=== PATIENT | female | born 1970 | race Caucasian/White ===

== ENCOUNTER 2019-12-08 16:32 | Outpatient (CLI) | payer BC, SELFPAY ==
[2019-12-08 17:07] LABS: Blood Urea Nitrogen 12 mg/dL (7-17); Calcium 9.1 mg/dL (8.4-10.2); Carbon Dioxide 25 mmol/L (22-30); Chloride 103 mmol/L (98-107); Estimated Glomerular Filt Rate > 60; Glucose 89 mg/dL (65-105); Potassium 3.7 mmol/L (3.4-5.0); Sodium 139 mmol/L (137-145)
== END 2019-12-08 16:33 | disposition home or self-care (01) ==
LOC: ANHLAB 16:33
PROVIDERS: PCP Family Medicine; Visit Provider Nurse Practitioner Family
DX: E87.1 Hypo-osmolality and hyponatremia (principal)
CPT/HCPCS: 36415; 80048

== ENCOUNTER 2020-08-02 06:59 | Outpatient (NON) | payer BC, SELFPAY ==
[2020-08-02 21:25] LABS: SARS-CoV-2 RNA PCR Negative
== END 2020-08-02 07:00 ==
PROVIDERS: PCP Family Medicine; Visit Provider Nurse Practitioner Family
DX: Z20.828 Contact with and (suspected) exposure to other viral communicable diseases (principal); R68.89 Other general symptoms and signs
CPT/HCPCS: 87635; C9803; U0003

== ENCOUNTER 2021-07-27 15:19 | Outpatient (CLI) | payer BC, SELFPAY ==
[2021-07-27 15:40] LABS: Basophils Percent Auto 0.3 % (0.2-1.2); Eosinophils Absolute Auto 0.1 K/mm3 (0-0.3); Eosinophils Percent Auto 1.5 % (0-4.4); Hematocrit 40.8 % (37.0-47.0); Hemoglobin 13.8 g/dL (12.0-15.0); Immature Granulocyte Absolute 0.01 K/mm3 (0.00-0.031); Immature Granulocyte Percent A 0.2 % (0-0.5); Lymphocytes Absolute Auto 2.54 K/mm3 (0.9-3.2); Lymphocytes Percent Auto 41.4 % (18.3-44.2); Mean Corpuscular HGB Conc 33.8 g/dl (32-36); Mean Corpuscular Hemoglobin 29.9 pg (26-34); Mean Corpuscular Volume 88.3 fl (80-100); Mean Platelet Volume 10.4 fl (7.4-10.4); Monocytes Absolute Auto 0.5 K/mm3 (0.1-0.6); Monocytes Percent Auto 8.8 % (2.6-8.5); Neutrophils Absolute Auto 2.9 K/mm3 (1.3-6.7); Neutrophils Percent Auto 47.8 % (45.5-73.1); Platelet Count Result 270 k/mm3 (150-375); Red Blood Count 4.62 M/mm3 (4.2-5.4); Red Cell Distribution Width 12.5 % (11.5-14.5); White Blood Count 6.1 K/mm3 (4.5-10.0)
[2021-07-27 15:48] LABS: Alanine Aminotransferase 17 U/L (4-35); Albumin Level 4.8 g/dL (3.5-5.1); Alkaline Phosphatase 87 U/L (38-126); Anion Gap 7 mmol/L (8-16); Aspartate Amino Transferase 24 U/L (14-36); Bilirubin,Total 0.2 mg/dL (0.2-1.3); Blood Urea Nitrogen 10 mg/dL (7-17); Calcium 9.6 mg/dL (8.4-10.2); Carbon Dioxide 29 mmol/L (22-30); Chloride 104 mmol/L (98-107); Estimated Glomerular Filt Rate > 60; Glucose 94 mg/dL (65-110); Potassium 4.3 mmol/L (3.4-5.0); Sodium 140 mmol/L (137-145)
[2021-07-27 16:06] LABS: Vitamin D 25 Hydroxy 35.9 ng/mL
== END 2021-07-27 15:20 | disposition home or self-care (01) ==
LOC: ANHLAB 15:22
PROVIDERS: PCP Family Medicine; Visit Provider Nurse Practitioner Family
DX: R10.813 Right lower quadrant abdominal tenderness (principal); R00.2 Palpitations; R53.83 Other fatigue
CPT/HCPCS: 36415; 80053; 82306; 84443; 85025

== ENCOUNTER → 2021-08-10 04:30 | Outpatient (CLI) | payer BC, SELFPAY ==
[2021-08-11 17:41] LABS: SARS-CoV-2 RNA PCR Negative
== END ==
PROVIDERS: PCP Family Medicine; Visit Provider Family Medicine
DX: R68.89 Other general symptoms and signs (principal); Z20.822 Contact with and (suspected) exposure to COVID-19
CPT/HCPCS: C9803; U0003; U0005

== ENCOUNTER → 2022-03-03 01:56 | Outpatient (CLI) | payer BC, SELFPAY ==
[2022-03-03 16:02] LABS: SARS-CoV-2 RNA PCR Negative
== END ==
PROVIDERS: PCP Family Medicine; Visit Provider Nurse Practitioner Family
DX: R68.89 Other general symptoms and signs (principal); Z20.822 Contact with and (suspected) exposure to COVID-19
CPT/HCPCS: C9803; U0003; U0005

== ENCOUNTER 2023-01-29 08:44 | Outpatient (CLI) | payer BC, SELFPAY ==
[2023-01-29 10:09] LABS: Hematocrit 41.2 % (37.0-47.0); Hemoglobin 14.1 g/dL (12.0-15.0); Mean Corpuscular HGB Conc 34.2 g/dl (32-36); Mean Corpuscular Hemoglobin 29.7 pg (26-34); Mean Corpuscular Volume 86.9 fl (80-100); Mean Platelet Volume 10.3 fl (7.4-10.4); Platelet Count Result 305 k/mm3 (150-375); Red Blood Count 4.74 M/mm3 (4.2-5.4); Red Cell Distribution Width 12.6 % (11.5-14.5); White Blood Count 6.1 K/mm3 (4.5-10.0)
[2023-01-29 10:28] LABS: Alanine Aminotransferase 21 U/L (6-35); Albumin Level 4.7 g/dL (3.5-5.1); Alkaline Phosphatase 96 U/L (38-126); Anion Gap 7 mmol/L (8-16); Aspartate Amino Transferase 23 U/L (14-36); Bilirubin,Total 0.5 mg/dL (0.2-1.3); Blood Urea Nitrogen 15 mg/dL (7-17); Calcium 9.2 mg/dL (8.4-10.2); Carbon Dioxide 30 mmol/L (22-30); Chloride 102 mmol/L (98-107); Cholesterol 228 mg/dL (0-200); Estimated Glomerular Filt Rate > 60; Glucose 97 mg/dL (65-110); HDL Direct 51 mg/dL; Potassium 4.6 mmol/L (3.4-5.0); Sodium 139 mmol/L (137-145); Triglycerides 149 mg/dL (<150)
[2023-01-29 10:39] LABS: LDL Cholesterol Direct 136 mg/dL
[2023-01-29 11:18] LABS: Vitamin D 25 Hydroxy 52.2 ng/mL
--- NOTE | 2023-02-02 12:36 | WPDHOLTEREM ---
Holter/Event Monitor Holter/Event Monitor Date of procedure: 01/29/23 Holter/Event Procedure: 48 Hr Holter Monitor Indications: Palpitations Conclusion: 1. 48 hour holter monitor on 01/29/23. 2. Underlying rhythm is sinus rhythm. HR range 50-140 bpm; average HR 80 bpm. 3. There are 35 premature supraventricular complexes and 1 supraventricular couplet. No supraventricular tachycardia. 4. There are 2 premature ventricular complexes. No ventricular tachycardia. 5. No sinoatrial or atrioventricular blocks. No significant pauses greater than 2 seconds. 6. No symptoms available for correlation.
== END 2023-01-29 08:45 | disposition home or self-care (01) ==
LOC: ANHCARD 08:46
PROVIDERS: PCP Family Medicine; Visit Provider Nurse Practitioner Family
DX: R00.2 Palpitations (principal); Z87.898 Personal history of other specified conditions; Z13.220 Encounter for screening for lipoid disorders; Z13.29 Encounter for screening for other suspected endocrine disorder; E55.9 Vitamin D deficiency, unspecified; Z13.1 Encounter for screening for diabetes mellitus; Z68.26 Body mass index [BMI] 26.0-26.9, adult
CPT/HCPCS: 36415; 80053; 80061; 82306; 84443; 85027; 93225; 93226

== ENCOUNTER 2023-03-12 08:54 | Outpatient (CLI) | payer BC, SELFPAY ==
--- NOTE | 2023-03-12 08:58 | EST_ITS ---
Patient Info Name: Snow Álvarez Age: 53 years : 1970 Gender: Female Ht: 66 in Wt: 160 lbs BSA: 1.85 m2 HR: 74 bpm BP: 115 / 84 mmHg Heart Rhythm: Sinus Rhythm Exam Date: 03/12/2023 9:08 AM Exam Location: [facility] Stress Patient Status: Outpatient Admit Date: 03/12/2023 Staff Ordering Physician: Elliot Workman DO Attending Provider: Elliot Workman DO Exercise Technologist: Falguni Jackson CT Exercise Physician: Elliot Workman DO Exam Type: CA stress test treadmill Study Info Indications R07.89 - Other chest pain A treadmill exercise stress test was performed. Summary 1. 1. Negative Syed exercise stress test for ischemic ST changes by ECG criteria. 2. 2. Good functional capacity, achieving 10 METs of workload. 3. 3. Appropriate HR response to exercise. 4. 4. Appropriate HR recovery at 1 minute post exercise. 5. 5. No imaging with stress testing. 6. 6. Patient informed of the above results. Protocol: Syed Stress ECG Details Stage: REST Duration (min): 1 min : 13 sec Speed (mph): 0.0 Grade (%): 0 HR (bpm): 70 SBP (mmHg): 115 DBP (mmHg): 84 METS: --- Stage: REST Duration (min): 10 min : 55 sec Speed (mph): 0.0 Grade (%): 0 HR (bpm): 79 SBP (mmHg): 115 DBP (mmHg): 84 METS: --- Stage: STAGE 1 Duration (min): 1 min : 0 sec Speed (mph): 1.7 Grade (%): 10 HR (bpm): 96 SBP (mmHg): 115 DBP (mmHg): 84 METS: --- Stage: STAGE 1 Duration (min): 2 min : 0 sec Speed (mph): 1.7 Grade (%): 10 HR (bpm): 108 SBP (mmHg): 115 DBP (mmHg): 84 METS: --- Stage: STAGE 1 Duration (min): 3 min : 0 sec Speed (mph): 1.7 Grade (%): 10 HR (bpm): 111 SBP (mmHg): 131 DBP (mmHg): 64 METS: --- Stage: STAGE 2 Duration (min): 1 min : 0 sec Speed (mph): 2.5 Grade (%): 12 HR (bpm): 119 SBP (mmHg): 131 DBP (mmHg): 64 METS: --- Stage: STAGE 2 Duration (min): 2 min : 0 sec Speed (mph): 2.5 Grade (%): 12 HR (bpm): 135 SBP (mmHg): 169 DBP (mmHg): 73 METS: --- Stage: STAGE 2 Duration (min): 3 min : 0 sec Speed (mph): 2.5 Grade (%): 12 HR (bpm): 133 SBP (mmHg): 169 DBP (mmHg): 73 METS: --- Stage: STAGE 3 Duration (min): 1 min : 0 sec Speed (mph): 3.4 Grade (%): 14 HR (bpm): 146 SBP (mmHg): 208 DBP (mmHg): 87 METS: --- Stage: STAGE 1 Duration (min): 3 min : 0 sec Speed (mph): 1.7 Grade (%): 10 HR (bpm): 111 SBP (mmHg): 131 DBP (mmHg): 64 METS: --- Stage: STAGE 2 Duration (min): 3 min : 0 sec Speed (mph): 2.5 Grade (%): 12 HR (bpm): 133 SBP (mmHg): 169 DBP (mmHg): 73 METS: --- Stage: STAGE 3 Duration (min): 2 min : 0 sec Speed (mph): 3.4 Grade (%): 14 HR (bpm): 153 SBP (mmHg): 208 DBP (mmHg): 87 METS: --- Stage: RECOVERY Duration (min): 1 min : 0 sec Speed (mph): 0.0 Grade (%): 0 HR (bpm): 124 SBP (mmHg): 150 DBP (mmHg): 92 METS:
== END 2023-03-12 08:55 | disposition home or self-care (01) ==
LOC: ANHCARD 08:56
PROVIDERS: PCP Family Medicine; Visit Provider Internal Medicine Cardiovascular Disease
DX: R07.9 Chest pain, unspecified (principal)
CPT/HCPCS: 93017

== ENCOUNTER 2023-03-30 01:18 | Day surgery (SDC) | payer BC, SELFPAY ==
[2023-03-23 08:54] VITALS: BMI 25.9
[2023-03-30 09:00] VITALS: BP 105/60; PULSE 67; RESP 16; TEMP 36.3; O2SAT 98; BMI 26.6
[2023-03-30] MEDS: LACTATED RINGERS 1,000 ML 150 ML IV CONT (09:21)
--- NOTE | 2023-03-30 09:22 | WPDANESEPPF ---
Anes - Initial Pre Proc Eval Procedure: Operation Date: 03/30/23 10:00 Proposed Procedures p Esophagogastroduodenoscopy - Pj Hanson MD Date/Time: 03/30/23 09:22 Surgeon: Pj Hanson MD Pre Op Diagnosis: GERD Patient Data Age: 53 Gender: F Height: 1.68 m Weight: 75 kg Last Vital Signs Temp 36.3 C L 03/30/23 09:00 Pulse 67 03/30/23 09:00 Resp 16 03/30/23 09:00 BP 105/60 03/30/23 09:00 Pulse Ox 98 03/30/23 09:00 O2 Del Method Room Air 03/30/23 09:00 Allergies Allergy/AdvReac Type Severity Reaction Status Date / Time No Known Allergies Allergy Verified 03/30/23 09:05 Home Medications Medication Instructions Recorded Confirmed Type estradiol 2 mg tablet 2 mg PO DAILY #90 tabs 12/19/22 03/30/23 Rx Patient hx anesthesia problems: none Family hx anesthesia problems: none Results Review: All pre-operative results and documents have been reviewed as part of the pre-operative evaluation. [facility] Past Medical History Medical History Adult BMI 26.0-26.9 kg/sq m Basal cell carcinoma (~2009) face BMI 24.0-24.9, adult BMI 25.0-25.9,adult COVID-19 Dense breast tissue History of carcinoma in situ of vulva Screening mammogram, encounter for Urinary, incontinence, stress female Surgical History Surgical History History of biopsy 01/20/13 vulvar biopsy--severe dysplasia/CIS/ROCK 3 History of bladder suspension procedure (~2012) History of excision of lesion 02/14/13 wide vulvar excision left labia--ROCK 3 History of genitourinary surgery 05/07/13 bladder defect repair History of laparoscopy multiple laparoscopies for endometriosis & ovarian cysts History of left knee surgery History of lumpectomy of left breast 04/02/17 benign, microcalcifications identified History of ovarian cystectomy (03/30/04) lt ovarian cyst History of total abdominal hysterectomy (02/26/02) WERNER RSO--endometriosis, ovarian cyst Family History Family History Father Glaucoma Diabetes mellitus Basal cell carcinoma of skin Hypertension Mother Alzheimers disease Pacemaker Breast cancer Hypertension Heart disease Sibling Diabetes mellitus brother Malignant melanoma of skin brother Hypertension brother Grandparent Malignant melanoma of skin paternal grandmother Cerebrovascular accident paternal grandfather Other Carcinoma of colon Family history of arthritis Family history of lung cancer Family history of malignant neoplasm of ovary Social History Social History Smoking status: Never smoker Tobacco type: cigarettes Alcohol intake: never Substance use: never Substance use type: does not use Living arrangements: with family Additional living arrangements comments: Occupation/Education: occupation Additional occupation/education comments: School RN Gender identity (if verbalized by the patient): Female Sexual Orientation (if Verbalized by the Patient): Straight or Heterosexual Spiritual care concerns: No Anes - Eval Final PreProcedure Day of Procedure 03/30/23 09:22 Patient weight: overweight Heart: regular rate and rhythm Lungs: clear to auscultation and normal air movement Airway: Mallampati scale class II Neurological: alert and oriented Last oral intake: >/= 8 hours ASA classification: II Emergent: no Anesthetic plan: proceed Anesthesia type and monitoring: general GIVS Results Review: All pre-operative results and documents have been reviewed as part of the pre-operative evaluation. Informed Consent: The patient's anesthetic plan and its attendant risks and benefits were discussed with the patient/family/POA. Questions were solicited and answers provided t
--- NOTE | 2023-03-30 09:46 | PM.HPGS ---
History of Present Illness History of Present Illness Consent: Risks, benefits, and alternatives have been discussed and questions answered. Patient agrees to proceed with procedure. Chief complaint: Dysphagia Narrative: Snow Álvarez is a 53 year old female Referred for EGD. Patient states for several months has had difficulty with food passage. She states food will hang up and then drop into the remainder of the esophagus it will once again holdup in the mid chest. She states this happens with both liquids and solids. She denies any heartburn. She occasionally will regurgitate or bring the food she has eaten back up undigested. She states that this causes some discomfort when it happens. She has no specific heartburn. She has had no bleeding or weight loss. Patient was given a trial of pantoprazole over the last several weeks with no change in symptoms. Family history is significant for a sibling with GE reflux and esophageal stricture that was dilated. Patient presents today for EGD to evaluate more thoroughly. Review of Systems Review of Systems: Review of systems noncontributory. [facility] Past Medical History Medical History Adult BMI 26.0-26.9 kg/sq m Basal cell carcinoma (~2009) face BMI 24.0-24.9, adult BMI 25.0-25.9,adult COVID-19 Dense breast tissue History of carcinoma in situ of vulva Screening mammogram, encounter for Urinary, incontinence, stress female Surgical History Surgical History History of biopsy 01/20/13 vulvar biopsy--severe dysplasia/CIS/ROCK 3 History of bladder suspension procedure (~2012) History of excision of lesion 02/14/13 wide vulvar excision left labia--ROCK 3 History of genitourinary surgery 05/07/13 bladder defect repair History of laparoscopy multiple laparoscopies for endometriosis & ovarian cysts History of left knee surgery History of lumpectomy of left breast 04/02/17 benign, microcalcifications identified History of ovarian cystectomy (03/30/04) lt ovarian cyst History of total abdominal hysterectomy (02/26/02) WERNER RSO--endometriosis, ovarian cyst Family History Family History Father Glaucoma Diabetes mellitus Basal cell carcinoma of skin Hypertension Mother Alzheimers disease Pacemaker Breast cancer Hypertension Heart disease Sibling Diabetes mellitus brother Malignant melanoma of skin brother Hypertension brother Grandparent Malignant melanoma of skin paternal grandmother Cerebrovascular accident paternal grandfather Other Carcinoma of colon Family history of arthritis Family history of lung cancer Family history of malignant neoplasm of ovary Social History Social History Smoking status: Never smoker Tobacco type: cigarettes Alcohol intake: never Substance use: never Substance use type: does not use Living arrangements: with family Additional living arrangements comments: Occupation/Education: occupation Additional occupation/education comments: School RN Gender identity (if verbalized by the patient): Female Sexual Orientation (if Verbalized by the Patient): Straight or Heterosexual Spiritual care concerns: No Meds Home Medications and Allergies Home Medications Medication Instructions Recorded Confirmed Type estradiol 2 mg tablet 2 mg PO DAILY #90 tabs 12/19/22 03/30/23 Rx Allergies Allergy/AdvReac Type Severity Reaction Status Date / Time No Known Allergies Allergy Verified 03/30/23 09:05 Vital Signs Vital Signs - 24 hr 03/30/23 09:00 Temperature 97.4 F L Pulse Rate 67 Respiratory Rate 16 Blood Pressure 105/60 Pulse Oximetry 98 Oxygen Delivery Room Air Exam Narrative: Physical exa
[2023-03-30 10:10] VITALS: BP 120/71; PULSE 78; RESP 22; O2SAT 100
[2023-03-30 10:20] VITALS: BP 124/73; PULSE 67; RESP 18; O2SAT 99
[2023-03-30 10:30] VITALS: BP 125/76; PULSE 64; RESP 21; O2SAT 99
== END 2023-03-30 10:42 | disposition home or self-care (01) ==
PROVIDERS: PCP Family Medicine; Visit Provider Internal Medicine Gastroenterology
PROC: 0DJ08ZZ Inspection of Upper Intestinal Tract, Via Natural or Artificial Opening Endoscopic (ICD-10-PCS; CPT 43235; principal; 2023-03-30 10:00)
DX: K22.2 Esophageal obstruction (principal)
CPT/HCPCS: 43450; 43235; J2704; J7120

== ENCOUNTER 2025-04-01 14:40 | Outpatient (CLI) | payer BC, SELFPAY ==
--- NOTE | ~2025-04-01 | MM_ITS ---
EXAMINATION: MM screening yonatan BI w [place] HISTORY: Screening TECHNIQUE: Craniocaudal and mediolateral oblique 3-D tomosynthesis images were obtained and synthetic 2-D images were generated. CAD analysis was submitted and interpreted. COMPARISON: Comparison to multiple prior studies sequentially, with oldest reviewed study dated 04/14. BREAST PARENCHYMAL COMPOSITION: Dense: The breasts are heterogeneously dense, which may obscure small masses FINDINGS: There are scattered bilateral breast asymmetries which are more prominent than on prior exa mination. There are no suspicious calcifications. There is architectural distortion inferiorly in the right breast on MLO view and laterally on the left breast best seen on CC view. IMPRESSION: 1. Bilateral breast asymmetries with architectural distortion of both breasts. 2. Additional mammographic views and possible breast ultrasound are recommended. BI-RADS Category 0: Incomplete: Needs additional imaging evaluation. Reviewed, dictated and finalized at location B. IMPRESSION: 1. Bilateral breast asymmetries with architectural distortion of both breasts. 2. Additional mammographic views and possible breast ultrasound are recommended . BI-RADS Category 0: Incomplete: Needs additional imaging evaluation.
== END 2025-04-01 14:41 | disposition home or self-care (01) ==
LOC: CHSIMG 14:43
PROVIDERS: PCP Family Medicine; Visit Provider Obstetrics & Gynecology
DX: Z12.31 Encounter for screening mammogram for malignant neoplasm of breast (principal); R92.8 Other abnormal and inconclusive findings on diagnostic imaging of breast
CPT/HCPCS: 77063; 77067

== ENCOUNTER 2025-04-23 12:54 | Outpatient (CLI) | payer BC, SELFPAY ==
--- NOTE | ~2025-04-23 | MM_ITS ---
EXAMINATION: MM diagnostic yonatan BI w [place] HISTORY: Bilateral breast asymmetries TECHNIQUE: Additional 3-D tomosynthesis images of the breasts were performed and synthetic 2-D images were generated. CAD analysis was submitted and interpreted. COMPARISON: 04/01/2025 BREAST PARENCHYMAL COMPOSITION:Dense: The breasts are heterogeneously dense, which may obscure small masses. FINDINGS: Bilateral breast asymmetries effacement spot compression. No persistent mass or suspicious distortion are identified. No suspicious microcalcification. IMPRESSION: No mammographic evidence for malignancy. BI-RADS Category 1: Negative Reviewed, dictated and finalized at location .
--- OUTSIDE RECORDS SUMMARY | 2025-04-23 12:59 | XMS_ITS | Encounter Summary ---
Author Organization [facility] Address [facility] [place] [address] Care Team Providers Care Coffee Bar Attendant Name Role Phone Robert Benitez MD Primary Care Provider [phone] Encounter Details Date Type Department Care Team (Late st Contact Info) Description 09/26/2018 Abstract [facility] CONVERSION [address] [place] [address] , Generic ConversionMD Social History Tobacco Use Types Packs/Day Years Used Date Smoking Tobacco: Never Assessed Comments Unknown Sex and Gender Information Value Date Recorded Sex Assigned at Not on file Legal Sex Female 8:06 PM CDT Gender Identity Not on file Sexual Orientation Not on file documented as of this encounter Plan of Treatment Not on file documented as of this encounter Visit Diagnoses Not on filedocumented in this encounter Care Teams Coffee Bar Attendant Relationship Specialty Start Date End Date Robert Bneitez MD [address] [place] [address] PCP - General FAMILY PRACTICE 11/11/18 documented as of this encounter
--- OUTSIDE RECORDS SUMMARY | 2025-04-23 12:59 | XMS_ITS | Encounter Summary ---
Author Organization [facility] Address [facility] [place] [address] Care Team Providers Care Type Mapper Name Role Phone Robert Benitez MD Primary Care Provider [phone] Encounter Details Date Type Department Care Team (Late st Contact Info) Description 02/16/2017 Abstract [facility] CONVERSION [address] [place] [address] , Generic ConversionMD Social History Tobacco Use [...] on filedocumented in this encounter Care Teams Type Mapper Relationship Specialty Start Date End Date Robert Benitez MD [address] [place] [address] PCP - General FAMILY PRACTICE 11/11/18 documented as of this encounter
--- OUTSIDE RECORDS SUMMARY | 2025-04-23 12:59 | XMS_ITS | Clinical Summary ---
Author Organization [facility] Address [facility] [place] [address] Care Team Providers Care Utility Helicopter Repairer Name Role Phone Robert Benitez MD Primary Care Provider [phone] Allergies No known active allergies Medications estradiol 2 MG tablet Take 1 tablet by mouth daily. 08/20/2018 Active hydrocodone-rodríguez taminophen (NORCO) 5-325 MG tablet Take 1-2 tablets by mouth every 4 (four) hours as needed for Pain. 50 tablet 11/14/2018 Active Family History Medical History Relation Comments Diabetes Brother Cancer Father Diabetes Father Stroke Maternal Grandfather Cancer Mother breast CA Heart Disease Mother a.fib Hypertension Mother Relation Status Comments Brother Father Maternal Grandfather Mother Social History Tobacco Use Types Packs/Day Years Used Date Smoking Tobacco: Former Cigarettes Q uit: 1994 Smokeless Tobacco: Never Alcohol Use Standard Drinks/Week Comments No 0 (1 standard drink = 0.6 oz pur e alcohol) AUDIT-C Answer Date Recorded Frequency of Alcohol Consumption Never 11/11/2018 Average Number of Drinks Not on file 019 Frequency of Binge Drinking Not on file 10/23 Comments Unknown Sex and Gender Information Value Date Recorded Sex Assigned at Not on file Legal Sex Female 8:06 PM CDT Gender Identity Not on file Sexual Orientation Not on file Last Filed Vital Signs Vital Sign Reading Time Taken Comments Blood Pressure 115/74 11/14/2018 3:40 PM ENGINEER TECHNICIAN Pulse 85 11/14/2018 3:40 PM ENGINEER TECHNICIAN Temperature 36.9 C (98.5 F) 11/14/2018 3:40 PM ENGINEER TECHNICIAN Respiratory Rate 18 11/14/2018 3:40 PM ENGINEER TECHNICIAN Oxygen Saturation 96% 11/14/2018 3:40 PM ENGINEER TECHNICIAN Inhaled Oxygen Concentration - - Weight 75.3 kg (166 lb 0.1 oz) 11/14/2018 7:00 A M ENGINEER TECHNICIAN Height 168.9 cm (5' 6.5) 11/14/2018 7:00 AM ENGINEER TECHNICIAN Body Mass Index 26.39 11/14/2018 7:00 AM ENGINEER TECHNICIAN Plan of Treatment Health Maintenance Due Date Last Done Comments Colorectal Cancer Screening Colonoscopy (10 Years) 1970 Annual Physical 01/21/1972 Hepatitis C 1987 DTaP, Tdap and Td Vaccines ( 1 - Tdap) 01/21/1988 Hepatitis B Vaccines (1 of 3 - 19+ 3-dose series) 01/21/1988 Pneumococcal Vaccine: 50+ Years (1 of 1 - PCV) 2019 Zoster Vaccines (1 of 2) 2019 Mammogram Screening 11/19/2022 11/19/2020, 04/02/2017, 04/02/2017 COVID-19 Vaccine (1 - 2023-2 5 season) 2024 Meningococcal B Vaccine Aged Out No l onger eligible based on patient's age to complete this topic Meningococcal Vaccine Aged Out No eliu willy eligible based on patient's age to complete this topic RSV Immunizations Under 20 Months Aged Out No longer eligible b ased on patient's age to complete this topic Medical Devices Implanted Type Area Model Artists' Device Identifier Shelf Expiration Date Model / Serial / Lot Stent Propel Mini 16mm - [id number] Implanted:Qty: 1 on 11/14/2018 by Pj Leone MD at [facility] Left: Nose INTERSECT ENT 07/11/2020 [id number] / / [id number] Stent Propel Mini 16mm - [id number] Implanted:Qty: 1 on 11/14/2018 by Pj Leone MD at [facility] Right: Nose INTERSECT ENT 07/11/2020 [id number] / / [id number] Procedures Procedure Name Priority Date/Time Associated Diagnosis Comments MG SCREENING W MC AGUEDA DIGI Routine 11/19/2020 1:56 PM ENGINEER TECHNICIAN Abnormal mammogram from Last 3 Months or Most Recently Relevant to Health Maintenance Results * MG SCREENING W MC AGUEDA DIGI (11/19/2020 1:56 PM ENGINEER TECHNICIAN) Anatomical Region Laterality Modality Breast Bilateral Mammography, Rad iographic Imaging 11/19/2020 2:38 PM ENGINEER TECHNICIAN Addenda Addendum by Chas Roe MD on 11/19/2020 3:49 PM ENGINEER TECHNICIAN IMAGING STUDIES: MG SCREENING W MC AGUEDA DIGI DATE: 11/19/2020 1:31 PM INDICATION: Benign ultrasound-guided biopsy left breast 04/02/2017, benign excisional biopsy of left breast 2003 COMPARISON: Bilateral ultrasound 11/11/2018, 08/08/2019, mammogram and ultrasound 05/01/2018, mammogram 01/13/2013, 04/14/2010. FINDINGS: Bilateral CC and MLO views, digital with CAD. 2-D with 3-D tomosynthesis. Breast compostition: Category C - The breasts are heterogeneously dense, which may obscure small masses. No suspicious microcalcification, worrisome mass or evidence of architectural distortion. No skin thickening or nipple retraction. The distribution of breast parenchyma within both breasts remain similar with stable asymmetry upper outer quadrant right breast. Benign microcalcifications. CONCLUSION: BI-RADS CATEGORY 3, PROBABLY BENIGN FINDINGS. Six-month follow-up bilateral breast ultrasound and if necessary mammogram is recommended MQSA BI-RADS Categories: Category 0 - needs additional imaging evaluation. Category 1 - negative. Category 2 - benign findings. Category 3 - probably benign findings, but short interval follow-up is recommended. Category 4 - suspicious abnormality and biopsy should be considered though the lesion may well be benign. Category 5 - highly suggestive of malignancy and appropriate action should be taken. A) A negative report should not delay a biopsy if a dominant or clinically suspicious mass is present. B) Adenosis and dense breasts may obscure an underlying neoplasm. C) Study interpreted with computer aided detection. Interpreted By: Chas Roe, 11/19/2020 3:44 PM Narrative 11/19/2020 3:22 PM ENGINEER TECHNICIAN IMAGING STUDIES: MG SCREENING W MC AGUEDA DIGI DATE: 11/19/2020 1:31 PM INDICATION: Benign ultrasound-guided biopsy left breast 04/02/2017, benign excisional biopsy of left breast 2003 COMPARISON: Bilateral ultrasound 11/11/2018, 08/08/2019, mammogram and ultrasound 05/01/2018, mammogram 01/13/2013, 04/14/2010. FINDINGS: Bilateral CC and MLO views, digital with CAD. 2-D with 3-D tomosynthesis. Breast compostition: Category C - The breasts are heterogeneously dense, which may obscure small masses. No suspicious microcalcification, worrisome mass or evidence of architectural distortion. No skin thickening or nipple retraction. The distribution of breast parenchyma within both breasts remain similar with stable asymmetry upper outer quadrant right breast. Benign microcalcifications. CONCLUSION: BI-RADS Category 0 - needs additional imaging evaluation. Six-month follow-up bilateral breast ultrasound and if necessary mammogram is recommended MQSA BI-RADS Categories: Category 0 - needs additional imaging evaluation. Category 1 - negative. Category 2 - benign findings. Category 3 - probably benign findings, but short interval follow-up is recommended. Category 4 - suspicious abnormality and biopsy should be considered though the lesion may well be benign. Category 5 - highly suggestive of malignancy and appropriate action should be taken. A) A negative report should not delay a biopsy if a dominant or clinically suspicious mass is present. B) Adenosis and dense breasts may obscure an underlying neoplasm. C) Study interpreted with computer aided detection. Interpreted By: Chas Roe, 11/19/2020 2:38 PM Reed Chase MD MAMMO Edited Resul t - Final from Last 3 Months or Most Recently Relevant to Health Maintenance Insurance [facility] Care Teams Utility Helicopter Repairer Relationship Specialty Start Date End Date Robert Benitez MD [address] [place] [address] PCP - General FAMILY PRACTICE 11/11/18
== END 2025-04-23 12:55 | disposition home or self-care (01) ==
PROVIDERS: PCP Family Medicine; Visit Provider Obstetrics & Gynecology
DX: N64.89 Other specified disorders of breast (principal)
CPT/HCPCS: 77062; 77066; G0279

== ENCOUNTER 2025-09-22 15:25 | Outpatient (CLI) | payer BC, SELFPAY ==
--- NOTE | ~2025-09-22 | XR_ITS ---
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 Technique: 2 views obtained. Findings: The lungs are clear, no effusion. No pneumothorax. Heart is normal size. Mediastinal and hilar contours are within normal limits. Bony thorax no acute abnormality. Impression: No acute cardiopulmonary abnormality. Reviewed, dictated and finalized at location P. AULIC LIFT DRIVER Impression: No acute cardiopulmonary abnormality.
--- NOTE | ~2025-09-22 | US_ITS ---
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 Findings: Deep Venous System:Normal flow, augmentation and compressibility. No echogenic thrombus identified. The contralateral saphenofemoral junction appears unremarkable. Superficial Venous SystemNo superficial thrombophlebitis. Soft tissues: Soft tissues are unremarkable. Impression: Negative for DVT. Reviewed, dictated and finalized at location P. SETTER Impression: Negative for DVT.
--- OUTSIDE RECORDS SUMMARY | 2025-09-22 16:38 | XMS_ITS | Clinical Summary ---
Author Organization [facility] Address [facility] [place] [address] Care Team Providers Care Manager Internet Name Role Phone Robert Benitez MD Primary Care Provider [phone] Allergies No known active allergies Medications estradiol [...] Comments Blood Pressure 115/74 11/14/2018 3:40 PM NATURE PHOTOGRAPHER Pulse 85 11/14/2018 3:40 PM NATURE PHOTOGRAPHER Temperature 36.9 C (98.5 F) 11/14/2018 3:40 PM NATURE PHOTOGRAPHER Respiratory Rate 18 11/14/2018 3:40 PM NATURE PHOTOGRAPHER Oxygen Saturation 96% 11/14/2018 3:40 PM NATURE PHOTOGRAPHER Inhaled Oxygen Concentration - - Weight 75.3 kg (166 lb 0.1 oz) 11/14/2018 7:00 A M NATURE PHOTOGRAPHER Height 168.9 cm (5' 6.5) 11/14/2018 7:00 AM NATURE PHOTOGRAPHER Body Mass Index 26.39 11/14/2018 7:00 AM NATURE PHOTOGRAPHER Plan of Treatment Health Maintenance Due Date [...] Screening 11/19/2022 11/19/2020, 04/02/2017, 04/02/2017 COVID-19 Vaccine ( - 2024-2 6 season) 2025 Influenza Adult (#1) 2025 Hepatitis A Vaccines Aged Out No long er eligible based on patient's age to complete this topic Meningococcal B Vaccine Aged Out No l onger eligible based on patient's age to complete this topic Meningococcal Vaccine Aged Out No eliu willy eligible based on patient's age to complete this topic RSV Immunizations Under 20 Months Aged Out No longer eligible b ased on patient's age to complete this topic Medical Devices Implanted Type Area Ring Barker Operator Device Identifier Shelf Expiration Date Model / Serial / Lot Stent Propel Mini 16mm - [id number] Implanted:Qty: 1 on 11/14/2018 by Pj Leone MD at [facility] Left: Nose INTERSECT ENT 07/11/2020 [id number] / / [id number] Stent Propel Mini 16mm - [id number] Implanted:Qty: 1 on 11/14/2018 by Pj Leone MD at [facility] Right: Nose INTERSECT ENT 07/11/2020 [id number] / / [id number] Procedures Procedure Name Priority Date/Time Associated Diagnosis Comments MG SCREENING W MC AGUEDA DIGI Routine 11/19/2020 1:56 PM NATURE PHOTOGRAPHER Abnormal mammogram from Last 3 Months or Most Recently Relevant to Health Maintenance Results * MG SCREENING W MC AGUEDA DIGI (11/19/2020 1:56 PM NATURE PHOTOGRAPHER) Anatomical Region Laterality Modality Breast Bilateral Mammography, Rad iographic Imaging 11/19/2020 2:38 PM NATURE PHOTOGRAPHER Addenda Addendum by Chas Roe MD on 11/19/2020 3:49 PM NATURE PHOTOGRAPHER IMAGING STUDIES: MG SCREENING W MC AGUEDA [...] 11/19/2020 3:44 PM Narrative 11/19/2020 3:22 PM NATURE PHOTOGRAPHER IMAGING STUDIES: MG SCREENING W MC AGUEDA DIGI DATE: 11/19/2020 1:31 PM INDICATION: Benign ultrasound-guided biopsy left breast 04/02/2017, benign excisional biopsy of left breast 2004 COMPARISON: Bilateral ultrasound 11/11/2018, 08/08/2019, mammogram and [...] Interpreted By: Chas Roe, 11/19/2020 2:38 PM us Reed Chase MD MAMMO Edited Resul t - Final from Last 3 Months or Most Recently Relevant to Health Maintenance Insurance [facility] Care Teams Manager Internet Relationship Specialty Start Date End Date Robert Benitez MD [address] [place] [address] PCP - General FAMILY PRACTICE 11/11/18
--- OUTSIDE RECORDS SUMMARY | 2025-09-22 16:38 | XMS_ITS | Encounter Summary ---
Author Organization [facility] Address [facility] [place] [address] Care Team Providers Care Mac Developer Name Role Phone Robert Benitez MD Primary Care Provider [phone] Encounter Details Date Type Department Care Team (Late st Contact Info) Description 09/26/2018 Abstract [facility] CONVERSION [id number] [place] [address] , Generic ConversionMD Social History Tobacco Use [...] on filedocumented in this encounter Care Teams Mac Developer Relationship Specialty Start Date End Date Robert Benitez MD [address] [place] [place] [address] PCP - General FAMILY PRACTICE 11/11/18 documented as of this encounter
--- OUTSIDE RECORDS SUMMARY | 2025-09-22 16:38 | XMS_ITS | Encounter Summary ---
Author Organization [facility] Address [facility] [place] [address] Care Team Providers Care Pension Manager Name Role Phone Robert Benitez MD Primary Care Provider [phone] Encounter Details Date Type Department Care Team (Late st Contact Info) Description 02/16/2017 Abstract [facility] CONVERSION [address] [place] [address] , Generic ConversionMD Social History Tobacco Use [...] on filedocumented in this encounter Care Teams Pension Manager Relationship Specialty Start Date End Date Robert Benitez MD [address] [place] [address] PCP - General FAMILY PRACTICE 11/11/18 documented as of this encounter
== END 2025-09-22 15:26 | disposition home or self-care (01) ==
PROVIDERS: PCP Family Medicine; Visit Provider Nurse Practitioner Adult Health
DX: R60.0 Localized edema (principal); M25.471 Effusion, right ankle; L53.9 Erythematous condition, unspecified; M25.571 Pain in right ankle and joints of right foot; R06.2 Wheezing
CPT/HCPCS: 71046; 93971

== ENCOUNTER 2025-10-05 15:48 | Outpatient (CLI) | payer BC, SELFPAY ==
[2025-10-05 17:15] LABS: Alanine Aminotransferase 28 U/L (6-35); Albumin Level 4.6 g/dL (3.5-5.1); Alkaline Phosphatase 82 U/L (38-126); Anion Gap 7 mmol/L (4-12); Aspartate Amino Transferase 28 U/L (14-36); Bilirubin,Total 0.6 mg/dL (0.2-1.3); Blood Urea Nitrogen 11 mg/dL (7-17); Calcium 9.8 mg/dL (8.4-10.2); Carbon Dioxide 27 mmol/L (22-30); Chloride 106 mmol/L (98-107); Cholesterol 231 mg/dL (0-200); Estimated Glomerular Filt Rate > 60; Glucose 86 mg/dL (65-110); HDL Direct 57 mg/dL; Potassium 4.1 mmol/L (3.4-5.0); Sodium 140 mmol/L (137-145); Total Protein 8.4 g/dL (6.3-8.2); Triglycerides 147 mg/dL (<150)
[2025-10-05 17:50] LABS: Thyroid Stimulating Hormone 1.150 uIU/mL (0.465-4.680)
== END 2025-10-05 15:49 | disposition home or self-care (01) ==
LOC: ANHLAB 15:50
PROVIDERS: PCP Family Medicine; Visit Provider Nurse Practitioner Adult Health
DX: Z13.220 Encounter for screening for lipoid disorders (principal); Z13.1 Encounter for screening for diabetes mellitus; Z13.29 Encounter for screening for other suspected endocrine disorder; E55.9 Vitamin D deficiency, unspecified
CPT/HCPCS: 36415; 80053; 80061; 82306; 84443